=== PATIENT | female | born 1945 | race Caucasian/White ===

== ENCOUNTER 2020-11-05 06:30 | Day surgery (SDC) | payer OTHER ==
[~2020-11-05] VITALS: Ht 168 cm; Wt 83.0 kg
[~2020-11-05 06:30] MED LIST: ASCORBIC ACID500 MG PO; CITALOPRAM HBR40 MG PO; LOVASTATIN20 MG PO; MELOXICAM15 MG PO; OS-CAL500 MG PO; PANTOPRAZOLE SO40 MG PO; VENTOLIN HFA18 GM INH; VITAMIN D325 MCG PO; ZYRTEC10 M3 PO
[2020-11-05] MEDS ORDERED: PERCOCET 5-3251 EACH PO (07:38)
--- NOTE | 2020-11-05 14:09 | NUR ---
PER ROSE GOLDBERG, ORTHO. PT. REQUESTS [facility]. SHE HAS A ROLLING WALKER. PLANNED DISCHARGE 11/06/20. REFERRAL SENT TO [facility].
--- NOTE | 2020-11-05 18:07 | NUR ---
1535 B/P WAS LOW 98/60 REPORTED IT Yao GREENFIELD,MARKETING DEVELOPER, NEW ORDERS TO FLUID BOLUS 500ML NS. 1535 500ML NS BOLUS WAS STARTED AND INFUSING WELL. 1600 102/50 HR 80 AFTER THE BOLUS HAS INFUSED. 1700 100/60 HR 75 WILL CONTINUE TO MONITOR FOR CHANGES.
[2020-11-06 05:53] LABS: BASOPHIL 0.2 % (0-2); EOSINOPHIL 0 % (0-7); HCT 34.1 % (37.0-47.0); HGB 10.7 g/dl (12.5-16.0); LYMPHOCYTE 4.4 % (15-48); MCH 31.4 pg (25.0-31.0); MCHC 31.4 g/dL (32.0-36.0); MONOCYTE 5.3 % (0-12); MPV 10.1 fL (6.0-9.5); NEUTROPHIL 89.4 % (41-80); NRBC 0; PLT 227 K/uL (150-400); RBC 3.41 M/uL (4.20-5.40); RDW 13.2 % (11.5-14.0); WBC 17.8 K/uL (4.0-10.5)
[2020-11-06 06:14] LABS: BUN/CREAT RATIO (CALC) 23.3 RATIO; CREATININE 0.73 mg/dL (0.51-0.95); POTASSIUM 4.4 mmol/L (3.5-5.1)
[2020-11-06] MEDS ORDERED: ASPIRIN81 MG PO (08:54)
[2020-11-06] MEDS ORDERED: FEOSOL325 MG PO (08:54)
--- NOTE | 2020-11-06 15:20 | NUR ---
PT. TO D/C HOME THIS DATE. [facility] WILL [facility] HER [facility]. PT. HAS A ROLLING WALKER.
== END 2020-11-06 12:18 | disposition home health service (06) ==
LOC: FAS 06:30 → FMS 10:20 → FAS 11-06 12:18
PROVIDERS: Orthopaedic Surgery
DX: M17.0 Bilateral primary osteoarthritis of knee (principal); E78.5 Hyperlipidemia, unspecified; I95.81 Postprocedural hypotension; K21.9 Gastro-esophageal reflux disease without esophagitis; F41.9 Anxiety disorder, unspecified
CPT/HCPCS: 36415; 73560; 80048; 85025; 86850; 86900; 86901; 94010; 97110; 97162; 97166; 97530-GP; 97535; C1713; C1776; J0171; J0697; J0735; J1100; J1170; J1885; J2250; J2270; J2405; J2704; J2795; J3010; J7040; J7120